=== PATIENT | female | born 1940 | race Caucasian/White ===

== ENCOUNTER → 2021-02-11 | Outpatient (CLI) | payer MEDICARE, OTHER ==
--- NOTE | 2021-02-11 16:13 | RAD ---
DUPLEX SONOGRAPHY OF THE PERIPHERAL ARTERIAL SYSTEM OF THE RIGHT LOWER EXTREMITY Clinical indications: Nonhealing wound of the right leg. Findings: Duplex sonography of the peripheral arterial system of the right lower extremity including chavez scale and color flow and spectral waveform analysis was performed.Triphasic waveforms are seen. No occlusive disease is seen. No significant plaque formation or stenosis is identified. The measurements were performed using the NASCET criteria. Peak systolic flow velocities are as follows: Right leg: common femoral artery- 163 cm/sec, profunda femoral artery -59 cm/sec, proximal superfici al femoral artery -82 cm/sec, mid superficial femoral artery -85 cm/sec, distal superficial femoral a rtery- 131 cm/sec, popliteal artery -88 cm/sec, proximal posterior tibial artery- 69 cm/sec, distal p osterior tibial artery- 38 cm/sec, peroneal artery-not visualized, anterior tibial artery- C7 cm/sec, dorsalis pedis artery -104 cm/sec. IMPRESSION: No significant peripheral arterial vascular disease is seen by duplex sonographic evaluat ion. ANKLE BRACHIAL INDEX STUDY ON THE RIGHT SIDE: Clinical indications: Same. Right side: Arm: The systolic blood pressure is 198 mmHg Ankle: Could not compress. Therefore, the ankle brachial index on the right side could not be obtai leroy. IMPRESSION: Could not obtain FRANK on the right side. Electronically signed by: Zi Baker MD (02/11/2021 4:11 PM) [id number]
== END ==
LOC: US 11:29
PROVIDERS: ATTEND Emergency Medicine Undersea and Hyperbaric Medicine
DX: I87.011 Postthrombotic syndrome with ulcer of right lower extremity (principal); L97.212 Non-pressure chronic ulcer of right calf with fat layer exposed
CPT/HCPCS: 93922; 93926

== ENCOUNTER 2021-03-28 08:13 | Day surgery (SDC) | payer MEDICARE, OTHER ==
[~2021-03-28] VITALS: Ht 170.2 cm; Wt 55.0 kg
[~2021-03-28 08:13] MED LIST: AMLO-186 PO; BUPIVACAINE-EPI 0.5%-1:200000 MPF 30 ML VIAL. ONE; FERR325T3 PO; GABA800T5 PO; HYDROmorphone 2 MG/ML VIAL IVP PRN; INUL2TAB4 PO; IV RINGERS,LACTATED 1000ML 1,000 ML IV SCH; LOSA100T14 PO; MORPHINE SULFATE 2 MG/ML INJ. IVP PRN; MULT-121 PO; OXCA150T19 PO; PROCHLORPERAZINE 10 MG/2 ML VIAL. IVP PRN; SERT100T PO; ceFAZolin SODIUM IV Push 1 GM VIAL. IVP PRN; fentaNYL PF VIAL 100 MCG/2 ML VIAL IVP PRN
[2021-03-28 08:50] VITALS: BP 199/109
[2021-03-28] MEDS ORDERED: fentaNYL PF VIAL 100 MCG/2 ML VIAL ONE ×2 (08:51→10:12)
[2021-03-28] MEDS ORDERED: PROPOFOL 10 MG/ML (20ML) VIAL. IV ONE (08:53)
[2021-03-28] MEDS ORDERED: DEXAMETHASONE SOD PHOS 4 MG/ML VIAL ONE (08:53)
[2021-03-28] MEDS ORDERED: LIDOCAINE 2% PF 5 ML VIAL. ONE (08:53)
[2021-03-28] MEDS ORDERED: ONDANSETRON PF 4 MG/2 ML VIAL. ONE (08:53)
--- NOTE | 2021-03-28 08:56 | PDOC ---
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 TO OR for excisional biopsy. R/R/B/A d/w pt and pt's supportive son. Risks, including, but not limited to: bleeding, infection, damage to surrounding structures, risk of anesthesia, risk of wound healing being prolonged, need for reexcision. They appear to understand, their questions are answered and they elect proceed. Office note H&P reviewed and unchanged. Justicifation of Admission Dx: Justifications for Admission: Justification of Admission Dx: N/A MAIKOL MCBRIDE MD Mar 28, 2021 08:56
[2021-03-28] MEDS ORDERED: SEVOFLURANE 31 TO 60 MINUTES. IH ONE (09:38)
--- NOTE | 2021-03-28 10:12 | PDOC4 ---
OPERATIVE NOTE Date: Date: Mar 28, 2021 Pre-Op Diagnosis: Right lateral lower leg squamous cell cancer Post-Op Diagnosis: same Procedure Performed: Excision of right lateral squamous cell cancer ulcer, 3 cm in length Surgeon: Shaquille Mcbride Anesthesia Type: GETA plus local Blood Loss: 10 Specimans Obtained: right lateral leg skin ulcer, stitch placed inferiorly (longitudinal biopsy in elliptical fashion) Findings: skin ulcer, minimal subcutaneous fat Complications: none Operative Note: After obtaining informed consent, patient was taken to OR, induced under GETA and prepped in the usual fashion over the right lower leg. Site marked with patient preop. Longitudinal elliptical incision was made to include all visually abnormal tissue with cautery with 2 mm margin. Further margin making wound difficult to close. Dissection continued down to fascia. Specimen sent to pathology. Hemostasis obtained with cautery. No evidence of bleeding at time of closure. Skin flaps created circumstantially. Minimal subcutaneous tissue noted. Skin repaired with multiple vertical and interrupted 2 0 nylon with good closure. Dressing placed. Patient tolerated procedure well and sent to PACU in stable condition. All counts correct. Wound class is 3 (ulceration). MAIKOL MCBRIDE MD Mar 28, 2021 10:12
[2021-03-28] MEDS: fentaNYL PF VIAL 100 MCG/2 ML VIAL IVP PRN ×2 (10:15→10:22)
[2021-03-28] MEDS ORDERED: MORPHINE SULFATE 2 MG/ML INJ. ONE (10:31)
[2021-03-28] MEDS ORDERED: hydrALAZINE 20 MG/ML VIAL. ONE (10:46)
[2021-03-28 10:57] VITALS: BP 167/90
[2021-03-28] MEDS ORDERED: hydrALAZINE 20 MG/ML VIAL. IVP ONE (11:00)
--- NOTE | 2021-03-29 18:11 | PATHOLOGY ---
[facility] Accession Number: [id number] . 01 Material submitted: . leg - LOWER LATERAL LEG SKIN BIOPSY, STITCH INFERIOR. Modifiers: lower, lateral . 01 Clinical history: . RIGHT LOWER LEG SQUAMOUS CELL CARCINOMA RIGHT SKIN EXCISIONAL BIOPSY OF LATERAL ULCER . 02 Diagnosis: Skin and subcutaneous tissue, right lower lateral leg excisional biopsy: - INVASIVE POORLY DIFFERENTIATED CARCINOMA SHOWING BASALOID AND SQUAMOID FEATURES - INKED MARGINS OF EXCISION FREE OF NEOPLASM. (JPM/db; 03/29/2021) LBQ 03/29/2021 1552 Local . 02 Electronically signed: . Gary Javed MD, Pathologist NPI- [id number] . 01 Gross description: . Received in formalin labeled "Fermin Arelis and lower lateral leg biopsy stitch-inferior". Received is a suture oriented mottled tanner-brown elliptical excision of skin measuring 3.5 x 1.6 and excised to 0.3 cm. The skin surface has a pink-brown depressed lesion measuring 1.6 x 1.0 x 0.1 cm. The suture designates the inferior tip (re-designated 6:00 tip). The specimen is inked yellow (12:00 tip to 3:00), blue (3:00 to 6:00 tip), and black (6:00 tip to 12:00 tip and deep). The specimen is serially sectioned from the 12:00 to 6:00 tip to reveal congested pink-tanner cut surfaces. The specimen is entirely submitted in cassettes A1 thru A4 (tips in A4).(BLJ; 03/28/2021) BLJ/BLJ 03/28/2021 2223 Local . 02 Pathologist provided ICD-10: C44.702 . 02 CPT . 258306 Specimen Comment: A courtesy copy of this report has been sent to [phone], [phone] Specimen Comment: [id number] Specimen Comment: Report sent to / DR ARREDONDO Performed at: 01 [facility] [address] [id number] MD Kb Evans MD Phone: [phone] Performed at: 02 [facility] [address] [place], [place] [id number] MD Gary Javed MD Phone: [phone]
== END 2021-03-28 11:35 | disposition home or self-care (01) ==
LOC: SURG 08:13
PROVIDERS: ATTEND Surgery
DX: C44.722 Squamous cell carcinoma of skin of right lower limb, including hip (principal); I10 Essential (primary) hypertension; F41.9 Anxiety disorder, unspecified; F32.9 Major depressive disorder, single episode, unspecified; Z85.828 Personal history of other malignant neoplasm of skin; Z87.891 Personal history of nicotine dependence; Z79.4 Long term (current) use of insulin; Z79.899 Other long term (current) drug therapy; Z98.890 Other specified postprocedural states
CPT/HCPCS: 11603; 88305; A4930; A6402; J0360; J0690; J1100; J2270; J2405; J2704; J3010